=== PATIENT | male | born 1990 | race African-American/Black ===

== ENCOUNTER → 2018-01-29 15:41 | Outpatient (CLI) | payer OTHER, SELFPAY ==
[2018-01-29 18:27] LABS: Urine N gonorrhoeae NOT DETECTED
[2018-01-30 15:07] LABS: Urine Chlamydia DETECTED
== END ==
PROVIDERS: Visit Provider Physician Assistant
DX: Z11.3 Encounter for screening for infections with a predominantly sexual mode of transmission (principal)
CPT/HCPCS: 87491; 87591